=== PATIENT | female | born 1985 | race Hispanic/Latino ===

== ENCOUNTER 2019-09-08 12:44 | Outpatient (CLI) | payer OTHER ==
--- NOTE | 2019-09-08 13:38 | RAD ---
PA AND LATERAL CHEST: HISTORY: Unspecified bacterial pneumonia. 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 FINDINGS: The heart size is normal. The lungs are expanded without lobar consolidation, pneumothoraces or pleur al effusions. No acute osseous abnormalities are seen. IMPRESSION: No acute process. POS: [facility]
== END 2019-09-08 12:45 | disposition home or self-care (01) ==
LOC: BICRAD 12:44
PROVIDERS: ATTEND Family Medicine
DX: J15.9 Unspecified bacterial pneumonia (principal); R05 Cough; R68.83 Chills (without fever)
CPT/HCPCS: 71046

== ENCOUNTER 2019-11-05 19:56 | Inpatient (IN) | payer OTHER ==
[2019-11-05] MEDS ORDERED: DEXTROSE 5% IV SCH (20:30)
[2019-11-05] MEDS ORDERED: WATER IV SCH (20:30)
[2019-11-05] MEDS ORDERED: ACETYLCYSTEINE IV SCH (20:30)
[2019-11-05] MEDS ORDERED: Ondansetron PF 4 MG/2 ML Vial ONE ×2 (20:54→23:22)
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
[2019-11-06] MEDS ORDERED: DEXTROSE 5% IV SCH (01:30)
[2019-11-06] MEDS ORDERED: ACETYLCYSTEINE IV SCH (01:30)
[2019-11-06] MEDS ORDERED: WATER IV SCH (01:30)
[2019-11-06 06:13] LABS: INR-International Normal Ratio 1.5; PTT 29.5 SEC (22.9-36.1); Prothrombin Time 17.7 SEC (12.0-14.7)
--- NOTE | 2019-11-06 08:37 | PDOC.FM ---
- Subjective Subjective: Pt resting comfortably in bed. States she regrets OD. No current SI/HI. Phys Exam - Physical Examination Constitutional: NAD HEENT: moist MMs, sclera anicteric Neck: supple, full ROM Respiratory: no wheezing, clear to auscultation bilateral Cardiovascular: RRR, no significant murmur Gastrointestinal: soft, no distention Musculoskeletal: pulses present, edema present Neurological: normal sensation, moves all 4 limbs Psychiatric: normal affect, A&O x 3 Skin: normal turgor, cap refill <2 seconds Dx/Plan (1) Suicide attempt by acetaminophen overdose Code(s): T39.1X2A - POISONING BY 4-AMINOPHENOL DERIVATIVES, SELF-HARM, INIT Status: Acute (2) Tylenol overdose Code(s): T39.1X1A - POISONING BY 4-AMINOPHENOL DERIVATIVES, ACCIDENTAL, INIT Status: Acute - Plan Plan: Tylenol OD: A- Pt doing well, no complaints. She has no hx of depression but will require psych eval. P- Proceed with NAC 21h Protocol IV dosing- * Bag1- 150mg/kg in D5W 200ml IV over 1 hr * Bag2- 50mg/kg in D5W 500ml IV over 4hr * Bag3- 100mg/kg in D5W 1000ml IV over 16h -Will repeat CMP and Coags at end of protocol at 1630 -[facility] eval once medically cleared -consider SSRI -Zofran for n/v Low TSH -T3, T4 wnl. f/u outpt Hx of cervical cancer -MD aware DVT PPx: SCD GI Ppx: none Addendum - Attending - Attending Attestation Date/Time: 11/06/19 1010 I personally evaluated the patient and discussed the management with Dr. Jackson. I agree with the History, Examination, Assessment and Plan documented above with any addition or exceptions noted below. Patient here for acetominophen OD. Her levels were just within the treatment range based on [facility]. She will complete NAC this evening and repeat labs at that time. Likely consult [facility] after those labs result. She is awake and conversing normally. Regretful for her actions. Hopeful no major or fci liver damage based on her levels.
[2019-11-06 09:23] VITALS: BMI 19.5
[2019-11-06] MEDS: Ondansetron PF 4 MG/2 ML Vial IVP PRN ×2 (09:35→22:11)
[2019-11-06] MEDS ORDERED: FLU VACC QS2019-20(6MOS UP)/PF 60 MCG/0.5 ML SYRINGE IM ONE (10:00)
[2019-11-06] MEDS ORDERED: Sodium Chloride 0.9% 1,000 ML IV SCH (10:15)
[2019-11-06] MEDS ORDERED: Sodium Chloride 0.9% 500 ML IV SCH (13:45)
[2019-11-06 17:11] LABS: INR-International Normal Ratio 1.7; PTT 33.8 SEC (22.9-36.1)
[2019-11-06 17:30] LABS: ALT (SGPT) 1628 U/L (8-55); AST (SGOT) 2109 U/L (5-34); Albumin 3.8 g/dL (3.5-5.0); Alkaline Phosphatase 95 U/L (40-110); Bilirubin, Direct 0.9 mg/dL (0.1-0.3); Bilirubin, Total 2.1 mg/dL (0.2-1.2); Protein, Total 6.5 g/dL (6.0-8.3)
[2019-11-06] MEDS: Sodium Chloride 0.9% 1,000 ML IV SCH ×2 (17:52→22:31)
[2019-11-06] MEDS ORDERED: DEXTROSE 5% IVPB ONE (18:45)
[2019-11-06] MEDS ORDERED: WATER IVPB ONE (18:45)
[2019-11-06] MEDS ORDERED: ACETYLCYSTEINE IVPB ONE (18:45)
[2019-11-06 18:48] LABS: Acetaminophen Less than 6.0 mcg/mL (10.0-30.0)
--- NOTE | 2019-11-07 06:07 | PDOC.FM ---
- Subjective Subjective: She is complaining of nausea this morning. She says she has been sleeping well. - Objective MAR Reviewed: Yes Vital Signs & Weight: Vital Signs (12 hours) Temp Pulse Resp BP Pulse Ox 11/07/19 03:30 98.3 F 70 16 93/57 L 98 11/06/19 19:30 98.2 F 61 18 105/69 95 Weight Weight 53.127 kg I&O: 11/05/19 11/06/19 11/07/19 06:59 06:59 06:59 Intake Total 2117.5 Output Total 1200 Balance 917.5 Result Diagrams: 11/07/19 08:42 Phys Exam - Physical Examination Constitutional: NAD HEENT: moist MMs, oral pharynx no lesions Neck: supple, full ROM Respiratory: clear to auscultation bilateral Cardiovascular: RRR, no significant murmur Gastrointestinal: soft, non-tender, positive bowel sounds Musculoskeletal: no edema, pulses present Neurological: moves all 4 limbs Psychiatric: normal affect Skin: no rash Dx/Plan (1) Suicide attempt by acetaminophen overdose Code(s): T39.1X2A - POISONING BY 4-AMINOPHENOL DERIVATIVES, SELF-HARM, INIT Status: Acute (2) Tylenol overdose Code(s): T39.1X1A - POISONING BY 4-AMINOPHENOL DERIVATIVES, ACCIDENTAL, INIT Status: Acute (3) Tylenol poisoning Code(s): T39.1X1A - POISONING BY 4-AMINOPHENOL DERIVATIVES, ACCIDENTAL, INIT Status: Acute (4) Adenocarcinoma of cervix, stage 4 Code(s): C53.9 - MALIGNANT NEOPLASM OF CERVIX UTERI, UNSPECIFIED Status: Acute - Plan Plan: A- Pt doing well, no complaints. She has no hx of depression but will require psych eval. P- Proceed with NAC 21h Protocol IV dosing- * Bag1- 150mg/kg in D5W 200ml IV over 1 hr * Bag2- 50mg/kg in D5W 500ml IV over 4hr * Bag3- 100mg/kg in D5W 1000ml IV over 16h * Bag4- 100mg/kg in D5W 1000ml IV over 16h -Will repeat CMP and Coags at end of protocol at 0900 -[facility] eval once medically cleared -consider SSRI -Zofran for n/v not working, so will switch to phenegran Low TSH -T3, T4 wnl. f/u outpt Hx of cervical cancer -MD aware DVT PPx: SCD GI Ppx: none Addendum - Attending - Attending Attestation Date/Time: 11/07/19 0720 I personally evaluated the patient and discussed the management with Dr. Cuello. I agree with the History, Examination, Assessment and Plan documented above with any addition or exceptions noted below. Patient was hypotensive with bp 80's/40's. She was asymptomatic. Giving 1 liter bolus NS. Pt with persistent nausea not improved with zofran. Will adjust meds. Pt has been on n-acetylcystein overnight and will get an additional bag this morning for tylenol overdose. Will add PPI. Pt is also hypokalemic, will replace potassium.
[2019-11-07] MEDS: Sodium Chloride 0.9% 1,000 ML IV SCH ×4 (07:21→16:47)
[2019-11-07] MEDS: Ondansetron PF 4 MG/2 ML Vial IVP PRN ×2 (07:31→15:25)
[2019-11-07 09:04] LABS: INR-International Normal Ratio 1.7; Prothrombin Time 19.5 SEC (12.0-14.7)
[2019-11-07 09:05] LABS: PTT 32.4 SEC (22.9-36.1)
[2019-11-07 09:08] LABS: Albumin 3.7 g/dL (3.5-5.0)
[2019-11-07 09:10] LABS: Calcium 8.5 mg/dL (7.8-10.44); Chloride 106 mmol/L (98-107); Sodium 143 mmol/L (136-145)
[2019-11-07 09:11] LABS: Globulin 2.5 g/dL (2.4-3.5); Glucose 99 mg/dL (70-105); Protein, Total 6.2 g/dL (6.0-8.3)
[2019-11-07 09:12] LABS: Anion Gap 12 mmol/L (10-20); Carbon Dioxide 28 mmol/L (22-29); Potassium 2.9 mmol/L (3.5-5.1)
[2019-11-07 09:13] LABS: Bilirubin, Total 2.2 mg/dL (0.2-1.2)
[2019-11-07 09:14] LABS: Alkaline Phosphatase 88 U/L (40-110); Calc. Creatinine Clearance 101 mL/min (70-130); Estimated GFR-MDRD Greater than 90
[2019-11-07 09:15] LABS: BUN (Urea Nitrogen) Less than 4 mg/dL (7.0-18.7)
[2019-11-07 09:16] LABS: AST (SGOT) 824 U/L (5-34)
[2019-11-07 09:17] LABS: ALT (SGPT) 1391 U/L (8-55)
[2019-11-07] MEDS ORDERED: Potassium Chloride 20 MEQ TAB PO SCH ×2 (09:30)
[2019-11-07] MEDS: Promethazine HCl 12.5 MG in Sodium Chloride 0.9% 50 ML IVPB PRN ×2 (09:49→16:47)
[2019-11-07] MEDS ORDERED: DEXTROSE 5% IVPB SCH (10:44)
[2019-11-07] MEDS ORDERED: WATER IVPB SCH (10:44)
[2019-11-07] MEDS ORDERED: ACETYLCYSTEINE IVPB SCH (10:44)
[2019-11-08 01:01] LABS: ALT (SGPT) 935 U/L (8-55); AST (SGOT) 257 U/L (5-34); Albumin 3.5 g/dL (3.5-5.0); Alkaline Phosphatase 79 U/L (40-110); Anion Gap 9 mmol/L (10-20); BUN (Urea Nitrogen) Less than 4 mg/dL (7.0-18.7); Bilirubin, Total 1.7 mg/dL (0.2-1.2); Calc. Creatinine Clearance 94 mL/min (70-130); Calcium 8.3 mg/dL (7.8-10.44); Carbon Dioxide 28 mmol/L (22-29); Chloride 109 mmol/L (98-107); Estimated GFR-MDRD Greater than 90; Globulin 2.5 g/dL (2.4-3.5); Glucose 118 mg/dL (70-105); Sodium 143 mmol/L (136-145)
[2019-11-08 01:07] LABS: Potassium 2.9 mmol/L (3.5-5.1)
[2019-11-08 01:10] LABS: INR-International Normal Ratio 1.5; PTT 32.4 SEC (22.9-36.1); Prothrombin Time 17.9 SEC (12.0-14.7)
[2019-11-08 01:11] LABS: D-Dimer Test 0.59 *mcg/mL (0.27-0.43)
[2019-11-08] MEDS: Sodium Chloride 0.9% 1,000 ML IV SCH ×3 (01:26→20:56)
[2019-11-08] MEDS ORDERED: Potassium Chloride 20 MEQ TAB PO SCH ×2 (01:45→14:00)
[2019-11-08] MEDS: Ondansetron PF 4 MG/2 ML Vial IVP PRN ×2 (02:08→16:04)
--- NOTE | 2019-11-08 05:41 | PDOC.FM ---
- Subjective Subjective: She has nausea this morning, but she is not having any abdominal pain. She says she is sleeping well. - Objective MAR Reviewed: Yes Vital Signs & Weight: Vital Signs (12 hours) Temp Pulse Resp BP BP Pulse Ox 11/08/19 03:13 98.6 F 57 L 12 93/55 L 98 11/07/19 23:47 98.9 F 64 13 93/56 L 98 11/07/19 20:28 98.3 F 65 18 98/59 L 100 Weight Admit Weight 53.127 kg Weight 53.127 kg I&O: 11/06/19 11/07/19 11/08/19 06:59 06:59 06:59 Intake Total 2117.5 1440 Output Total 1200 700 Balance 917.5 740 Result Diagrams: 11/08/19 11:12 Phys Exam - Physical Examination Constitutional: NAD HEENT: moist MMs, oral pharynx no lesions Neck: supple, full ROM Respiratory: clear to auscultation bilateral Cardiovascular: RRR, no significant murmur Gastrointestinal: soft, non-tender, positive bowel sounds Musculoskeletal: no edema, pulses present Neurological: moves all 4 limbs Psychiatric: normal affect Skin: no rash, normal turgor Dx/Plan (1) Suicide attempt by acetaminophen overdose Code(s): T39.1X2A - POISONING BY 4-AMINOPHENOL DERIVATIVES, SELF-HARM, INIT Status: Acute (2) Tylenol overdose Code(s): T39.1X1A - POISONING BY 4-AMINOPHENOL DERIVATIVES, ACCIDENTAL, INIT Status: Acute (3) Tylenol poisoning Code(s): T39.1X1A - POISONING BY 4-AMINOPHENOL DERIVATIVES, ACCIDENTAL, INIT Status: Acute (4) Adenocarcinoma of cervix, stage 4 Code(s): C53.9 - MALIGNANT NEOPLASM OF CERVIX UTERI, UNSPECIFIED Status: Acute - Plan Plan: A- Pt doing well, no complaints. She has no hx of depression but will require psych eval. P- Proceed with NAC 21h Protocol IV dosing- * Bag1- 150mg/kg in D5W 200ml IV over 1 hr * Bag2- 50mg/kg in D5W 500ml IV over 4hr * Bag3- 100mg/kg in D5W 1000ml IV over 16h * Bag4- 100mg/kg in D5W 1000ml IV over 16h -LFTs lower, but still elevated, we will trend -[facility] eval once medically cleared -consider SSRI -Phenegran for n/v not working Low TSH -T3, T4 wnl. f/u outpt Hx of cervical cancer -MD aware DVT PPx: SCD GI Ppx: none Dispo: Tele, inpt. LOS >48H Will trend LFTs. Consider GI consult today or tomorrow. Addendum - Attending - Attending Attestation Date/Time: 11/08/19 3374 I personally evaluated the patient and discussed the management with Dr. Cuello. I agree with the History, Examination, Assessment and Plan documented above with any addition or exceptions noted below. Liver enzymes are downtrending. Pt is still nauseated but notes improvement. Abdominal pain is improved. Giving additional fluid bolus for hypotension however pt likely runs in the low 90-100's systolic at home per pt.
[2019-11-08] MEDS ORDERED: Sodium Chloride 0.9% 1,000 ML IV SCH ×2 (06:00→12:00)
[2019-11-08] MEDS: Promethazine HCl 12.5 MG in Sodium Chloride 0.9% 50 ML IVPB PRN ×2 (08:58→22:17)
[2019-11-08 11:40] LABS: Anion Gap 8 mmol/L (10-20); BUN (Urea Nitrogen) Less than 4 mg/dL (7.0-18.7); Calc. Creatinine Clearance 107 mL/min (70-130); Calcium 8.5 mg/dL (7.8-10.44); Carbon Dioxide 29 mmol/L (22-29); Chloride 110 mmol/L (98-107); Estimated GFR-MDRD Greater than 90; Glucose 102 mg/dL (70-105); Potassium 3.2 mmol/L (3.5-5.1); Sodium 144 mmol/L (136-145)
[2019-11-08 15:15] LABS: ALT (SGPT) 734 U/L (8-55); AST (SGOT) 139 U/L (5-34); Albumin 3.6 g/dL (3.5-5.0); Alkaline Phosphatase 74 U/L (40-110); Bilirubin, Direct 0.6 mg/dL (0.1-0.3); Bilirubin, Total 1.3 mg/dL (0.2-1.2)
--- NOTE | 2019-11-09 04:50 | PDOC.FM ---
- Subjective Subjective: Doing well this morning, still complains of nausea. - Objective MAR Reviewed: Yes Vital Signs & Weight: Vital Signs (12 hours) Temp Pulse Resp BP Pulse Ox 11/09/19 03:11 97.9 F 62 16 104/64 98 11/08/19 23:09 98.7 F 58 L 14 103/68 98 11/08/19 20:57 98.7 F 65 18 98/64 99 11/08/19 20:10 99 Weight Admit Weight 53.127 kg Weight 53.127 kg I&O: 11/07/19 11/08/19 11/09/19 06:59 06:59 06:59 Intake Total 2117.5 3880 2490 Output Total 1200 1300 2800 Balance 917.5 2580 -310 Result Diagrams: 11/09/19 06:20 Phys Exam - Physical Examination Constitutional: NAD HEENT: PERRLA, moist MMs Neck: supple, full ROM Respiratory: no wheezing, no rales, no rhonchi, clear to auscultation bilateral Cardiovascular: RRR, no significant murmur, no rub Gastrointestinal: soft, non-tender Musculoskeletal: no edema Neurological: non-focal, moves all 4 limbs Psychiatric: normal affect, A&O x 3 Dx/Plan (1) Suicide attempt by acetaminophen overdose Code(s): T39.1X2A - POISONING BY 4-AMINOPHENOL DERIVATIVES, SELF-HARM, INIT Status: Acute (2) Tylenol overdose Code(s): T39.1X1A - POISONING BY 4-AMINOPHENOL DERIVATIVES, ACCIDENTAL, INIT Status: Acute (3) Tylenol poisoning Code(s): T39.1X1A - POISONING BY 4-AMINOPHENOL DERIVATIVES, ACCIDENTAL, INIT Status: Acute - Plan Plan: Overdose, tylenol -Completed NAC 21h Protocol IV dosing -LFTs lower, but still elevated, we will trend -[facility] eval once medically cleared -Zofran and Phenergan for n/v Low TSH -T3, T4 wnl. f/u outpt Hx of cervical cancer -MD aware DVT PPx: SCD GI Ppx: none Dispo: Tele, inpt. LOS >48H Will trend LFTs. Consider GI consult today or tomorrow. Addendum - Attending - Attending Attestation Date/Time: 11/09/19 8104 I personally evaluated the patient and discussed the management with the team. I agree with the History, Examination, Assessment and Plan documented above with any addition or exceptions noted below. Patient with intermittent nausea but improving. No LESLI/RUQ pain. No f/c. No cp/sob. Exam is unremarkable. Poison control said to d/c NAC in light of serially downtrending LFT's. Will xfer to the floor. Possible [facility] consultation tomorrow.
[2019-11-09 04:52] LABS: INR-International Normal Ratio 1.2; PTT 34.1 SEC (22.9-36.1); Prothrombin Time 15.5 SEC (12.0-14.7)
[2019-11-09] MEDS: Sodium Chloride 0.9% 1,000 ML IV SCH ×3 (05:13→19:57)
[2019-11-09 07:01] LABS: ALT (SGPT) 533 U/L (8-55); AST (SGOT) 74 U/L (5-34); Albumin 3.4 g/dL (3.5-5.0); Alkaline Phosphatase 74 U/L (40-110); Anion Gap 7 mmol/L (10-20); BUN (Urea Nitrogen) Less than 4 mg/dL (7.0-18.7); Bilirubin, Total 0.8 mg/dL (0.2-1.2); Calc. Creatinine Clearance 109 mL/min (70-130); Calcium 8.5 mg/dL (7.8-10.44); Carbon Dioxide 28 mmol/L (22-29); Chloride 110 mmol/L (98-107); Estimated GFR-MDRD Greater than 90; Globulin 2.3 g/dL (2.4-3.5); Glucose 83 mg/dL (70-105); Potassium 3.3 mmol/L (3.5-5.1); Protein, Total 5.7 g/dL (6.0-8.3); Sodium 142 mmol/L (136-145)
[2019-11-09] MEDS: Ondansetron PF 4 MG/2 ML Vial IVP PRN ×2 (09:03→17:07)
[2019-11-09] MEDS ORDERED: Potassium Chloride 20 MEQ TAB PO SCH (12:00)
[2019-11-09] MEDS ORDERED: Magnesium 2 GM/50 ML 2 GM in Premix Bag 1 BAG IVPB SCH (12:00)
[2019-11-09 13:49] LABS: Cardiolipin IgG Ab 4.1 GPL-U/mL (<10 Negative); Cardiolipin IgM Ab 1.9 MPL-U/mL (<10 Negative); EliA APS New Method **** NEW METHOD ****
[2019-11-09] MEDS: Promethazine HCl 12.5 MG in Sodium Chloride 0.9% 50 ML IVPB PRN (20:12)
[2019-11-10] MEDS: Sodium Chloride 0.9% 1,000 ML IV SCH ×2 (00:19→08:20)
--- NOTE | 2019-11-10 05:56 | PDOC.FM ---
- Subjective Subjective: Ms. Pearson is doing well this morning. She states he nausea has improved. - Objective MAR Reviewed: Yes Vital Signs & Weight: Vital Signs (12 hours) Temp Pulse Resp BP BP Pulse Ox 11/10/19 04:15 98 F 54 L 16 102/66 98 11/09/19 23:15 97.9 F 53 L 18 102/67 99 11/09/19 19:05 98.9 F 68 13 98/65 98 Weight Admit Weight 53.127 kg Weight 53.127 kg I&O: 11/08/19 11/09/19 11/10/19 06:59 06:59 06:59 Intake Total 3880 2490 3346 Output Total 1300 2800 1700 Balance 2580 -310 1646 Result Diagrams: 11/10/19 05:40 Phys Exam - Physical Examination Constitutional: NAD HEENT: PERRLA, moist MMs Neck: no nodes, supple, full ROM Respiratory: no wheezing, no rales, no rhonchi, clear to auscultation bilateral Cardiovascular: RRR, no significant murmur, no rub Gastrointestinal: soft, non-tender Musculoskeletal: no edema, pulses present Neurological: non-focal, normal sensation Psychiatric: normal affect, A&O x 3 Skin: no rash, normal turgor Dx/Plan (1) Suicide attempt by acetaminophen overdose Code(s): T39.1X2A - POISONING BY 4-AMINOPHENOL DERIVATIVES, SELF-HARM, INIT Status: Acute (2) Tylenol overdose Code(s): T39.1X1A - POISONING BY 4-AMINOPHENOL DERIVATIVES, ACCIDENTAL, INIT Status: Acute (3) Tylenol poisoning Code(s): T39.1X1A - POISONING BY 4-AMINOPHENOL DERIVATIVES, ACCIDENTAL, INIT Status: Acute - Plan Plan: Overdose, tylenol -Completed NAC Protocol IV -LFTs lower, but still elevated, we will trend -I will contact [facility] today to verify what is considered medically stable as far as LFTs go. -Zofran and Phenergan for n/v Low TSH -T3, T4 wnl. f/u outpt Hx of cervical cancer -MD aware DVT PPx: SCD GI Ppx: none Code: Full Dispo: Stable, inpatient. Will consult [facility] as soon as LFTs are significantly decreased. Addendum - Attending - Attending Attestation Date/Time: 11/10/19 3464 I personally evaluated the patient and discussed the management with the team. I agree with the History, Examination, Assessment and Plan documented above with any addition or exceptions noted below. Encouraging results from LFT trend. Will clear medically, just needs twice a week or weekly LFTs to trend.
[2019-11-10 06:15] LABS: ALT (SGPT) 406 U/L (8-55); AST (SGOT) 58 U/L (5-34); Albumin 3.5 g/dL (3.5-5.0); Alkaline Phosphatase 76 U/L (40-110); Anion Gap 10 mmol/L (10-20); BUN (Urea Nitrogen) 4 mg/dL (7.0-18.7); Bilirubin, Total 0.8 mg/dL (0.2-1.2); Calc. Creatinine Clearance 110 mL/min (70-130); Calcium 8.7 mg/dL (7.8-10.44); Carbon Dioxide 27 mmol/L (22-29); Chloride 108 mmol/L (98-107); Estimated GFR-MDRD Greater than 90; Globulin 2.4 g/dL (2.4-3.5); Glucose 72 mg/dL (70-105); Magnesium 1.9 mg/dL (1.6-2.6); Potassium 3.8 mmol/L (3.5-5.1); Protein, Total 5.9 g/dL (6.0-8.3); Sodium 141 mmol/L (136-145)
[2019-11-10] MEDS: Ondansetron PF 4 MG/2 ML Vial IVP PRN (08:26)
[2019-11-10] MEDS ORDERED: Promethazine 25 MG TAB PO PRN (11:10)
[2019-11-10] MEDS ORDERED: Ondansetron ODT 4 MG TAB PO PRN (11:10)
[2019-11-11 05:51] LABS: ALT (SGPT) 333 U/L (8-55); AST (SGOT) 45 U/L (5-34); Albumin 3.9 g/dL (3.5-5.0); Alkaline Phosphatase 101 U/L (40-110); Anion Gap 10 mmol/L (10-20); BUN (Urea Nitrogen) 10 mg/dL (7.0-18.7); Bilirubin, Total 0.6 mg/dL (0.2-1.2); Calc. Creatinine Clearance 87 mL/min (70-130); Carbon Dioxide 30 mmol/L (22-29); Chloride 105 mmol/L (98-107); Estimated GFR-MDRD 85; Globulin 2.8 g/dL (2.4-3.5); Glucose 91 mg/dL (70-105); Potassium 3.4 mmol/L (3.5-5.1); Protein, Total 6.7 g/dL (6.0-8.3); Sodium 142 mmol/L (136-145)
--- NOTE | 2019-11-11 08:56 | PDOC.FM ---
- Subjective Subjective: Doing well this morning, nausea has resolved. She is eager to be discharged and understands the need for inpatient psychiatric evaluation and treatment, however she is discontent with it. - Objective MAR Reviewed: Yes Vital Signs & Weight: Vital Signs (12 hours) Temp Pulse Resp BP BP Pulse Ox 11/11/19 07:13 98.4 F 68 16 105/65 98 11/11/19 04:00 97.9 F 60 16 101/59 L 97 11/10/19 23:51 97.9 F 64 16 101/65 97 Weight Admit Weight 53.127 kg Weight 53.127 kg I&O: 11/10/19 11/11/19 11/12/19 06:59 06:59 06:59 Intake Total 3346 1120 450 Output Total 2100 Balance 1246 1120 450 Result Diagrams: 11/11/19 04:59 Phys Exam - Physical Examination Constitutional: NAD HEENT: PERRLA, moist MMs Neck: supple, full ROM Respiratory: no wheezing, no rales, no rhonchi, clear to auscultation bilateral Cardiovascular: RRR, no significant murmur, no rub Gastrointestinal: soft, non-tender Musculoskeletal: no edema, pulses present Neurological: non-focal, normal sensation Psychiatric: normal affect, A&O x 3 Skin: no rash, normal turgor Dx/Plan (1) Suicide attempt by acetaminophen overdose Code(s): T39.1X2A - POISONING BY 4-AMINOPHENOL DERIVATIVES, SELF-HARM, INIT Status: Acute (2) Tylenol overdose Code(s): T39.1X1A - POISONING BY 4-AMINOPHENOL DERIVATIVES, ACCIDENTAL, INIT Status: Acute (3) Tylenol poisoning Code(s): T39.1X1A - POISONING BY 4-AMINOPHENOL DERIVATIVES, ACCIDENTAL, INIT Status: Acute - Plan Plan: Overdose, tylenol - [facility] saw patient yesterday and recommended inpatient psychiatric hospitalization. We are in agreement with this assessment and working toward discharging the patient. Patient is medically stable and clear for d/c as soon as [place] [facility] is available. Low TSH -T3, T4 wnl. f/u outpt Hx of cervical cancer -MD aware DVT PPx: SCD GI Ppx: none Code: Full Dispo: Stable, inpatient. Will consult [facility] as soon as LFTs are significantly decreased. Addendum - Attending - Attending Attestation Date/Time: 11/11/19 1300 I personally evaluated the patient and discussed the management with Dr. Keane. I agree with the History, Examination, Assessment and Plan documented above with any addition or exceptions noted below.
[2019-11-11 12:37] VITALS: BP 105/68; TEMP 97.8
== END 2019-11-11 13:35 | disposition short-term general hospital (02) | DRG 918 ==
LOC: ERS 19:56 → ERHOLD 20:35 → 2NO 11-06 09:05 → SURG B 11-09 19:32
PROVIDERS: ADMIT Emergency Medicine; ATTEND Emergency Medicine
DX: T39.1X2A Poisoning by 4-Aminophenol derivatives, intentional self-harm, initial encounter (principal); C53.9 Malignant neoplasm of cervix uteri, unspecified; F32.9 Major depressive disorder, single episode, unspecified; Z98.51 Tubal ligation status; E87.6 Hypokalemia; I95.9 Hypotension, unspecified
CPT/HCPCS: 36415; 80053; 80076; 80307; 81240; 81241; 83090; 83735; 84439; 84481; 85240; 85300; 85303; 85305; 85307; 85379; 85598; 85610; 85730; 86147; J0132; J2405; J2550; J3475; J7070

== ENCOUNTER 2020-07-25 07:52 | Outpatient (CLI) | payer OTHER ==
--- NOTE | 2020-07-25 09:28 | MRI ---
Exam: MRI cervical spine without contrast HISTORY: Tingling and numbness in left lower arm and right forearm x2-3 months.. COMPARISON: None FINDINGS: Appropriate T1 marrow signal intensity of the cervical vertebra. Cervical spine vertebral body heigh t is maintained. No fracture. No significant STIR hyperintensity suggest ligamentous injury or vertebral body edema Visualized brain parenchyma, cervicomedullary junction, cervical cord and the upper thoracic cord hav e a normal size and signal intensity C2-C3: No significant posterior disc abnormality. No significant central canal stenosis or significan t neural foraminal narrowing C3-C4: No significant posterior disc abnormalities. No significant central canal stenosis or signific ant neural foraminal narrowing C4-C5: No significant posterior disc abnormality. No significant central canal stenosis or significan t neural foraminal narrowing C5-C6: No significant posterior disc abnormality. No significant central canal stenosis or significan t neural foraminal narrowing C6-C7: No significant posterior disc abnormality. No significant central canal stenosis or significan t neural foraminal narrowing C7-T1: No significant posterior disc abnormality. No significant central canal stenosis or significan t neural foraminal narrowing IMPRESSION: No significant central canal stenosis or significant neural foraminal narrowing, throughout the cerv ical spine
--- NOTE | 2020-07-25 09:52 | MRI ---
Exam: Brain MRI with and without contrast HISTORY: Hypoesthesia. Tingling and numbness in the left lower arm and right upper extremity. COMPARISON: 10/28/2016 FINDINGS: Gradient echo sequence: No hemorrhage Calvarium: Appropriate T1 marrow signal intensity Midline brain parenchyma: Unremarkable Cerebrum:No parenchymal mass, mass effect or midline shift. Brain volume is age-appropriate. Cortical ogden-white matter differentiation is preserved. No significant T2 or FLAIR white matter hyperintensity. Ventricles: No evidence of hydrocephalus. Sinuses and mastoid air cells: Adequate aeration Diffusion: Central arterial flow is maintained. Absent restricted diffusion. Postcontrast images: No pathologic enhancement of the brain parenchyma. IMPRESSION: No acute intracranial process. No significant interval change.
[2020-07-25] MEDS ORDERED: Magnevist 469MG/ML 20 ML VIAL ONE (11:23)
== END 2020-07-25 07:53 | disposition home or self-care (01) ==
LOC: BICMRI 07:52
PROVIDERS: ATTEND Psychiatry & Neurology Neurology
DX: R20.1 Hypoesthesia of skin (principal)
CPT/HCPCS: 70553; 72141; A9579

== ENCOUNTER 2023-07-19 08:04 | Outpatient (CLI) | payer BC | END 2023-07-19 08:05 | disposition home or self-care (01) | LOC: BICRAD 08:04 | PROVIDERS: ATTEND Student in an Organized Health Care Education/Training Program | DX: M25.541 Pain in joints of right hand (principal) ==

== ENCOUNTER 2024-10-02 22:00 | Emergency (ER) | payer BC ==
[2024-10-02 22:28] LABS: #Basophils Less than 0.03 10x3/uL (0.0-0.2); %Basophils 0.2 % (0.0-1.0); %Eosinophils 0.3 % (0.0-10.0); %Lymphocytes 19.3 % (21.0-51.0); %Monocytes 5.5 % (0.0-10.0); %Neutrophils 74.4 % (42.0-75.0); Hematocrit 38.9 % (36.0-47.0); Hemoglobin 12.9 g/dL (12.0-16.0); Mean Corpuscular HGB CONC 33.2 g/dL (32.0-36.0); Mean Corpuscular Hemoglobin 29.5 pg (27.0-31.0); Mean Corpuscular Volume 88.8 fL (78.0-98.0); Platelet Count 280 10x3/uL (130-400); RBC Distribution Width 12.7 % (11.5-14.5); Red Blood Cell (RBC) Count 4.38 mill/uL (4.20-5.40)
[2024-10-02 22:31] LABS: Bacteria/HPF None Seen HPF (None Seen); Bilirubin Negative (Negative); Blood, Urine 2+ (Negative); CAUTI Indications for Culture Dysuria,urgency,freq; Clarity Turbid (Clear); Glucose, Urine (Dipstick) Normal (Negative); Ketone, Urine Negative (Negative); Leukocyte 500 Leu/uL (Negative); Nitrite Negative (Negative); Pregnancy Test - Urine (BHCG) Negative (Negative); Pregu Control Background? CLEAR/WHITE (CLR/WHITE); Pregu Control Bar Appear? YES (CONTROL BAR); Protein, Urine (Dipstick) 300 mg/dL (Neg-Trace); Squamous Epithelial None Seen HPF (0-3); Urobilinogen Normal mg/dL (Less than 2); WBC/HPF Greater than 50 HPF (0-3); pH, Urine 6.5 (5.0-9.0)
[2024-10-02 22:33] LABS: Urine Culture Reflex Yes Yes
[2024-10-02 22:52] LABS: ALT (SGPT) 27 U/L (8-55); AST (SGOT) 31 U/L (5-34); Albumin 3.9 g/dL (3.5-5.0); Alkaline Phosphatase 114 U/L (40-110); Anion Gap 15 mmol/L (10-20); BUN (Urea Nitrogen) 13 mg/dL (7.0-18.7); Calc. Creatinine Clearance 0 mL/min (70-130); Calcium 9.5 mg/dL (7.8-10.44); Carbon Dioxide 23 mmol/L (22-29); Chloride 108 mmol/L (98-107); Estimated GFR 95; Glucose 136 mg/dL (70-105); Lipase 17 U/L (8-78); Potassium 4.6 mmol/L (3.5-5.1); Protein, Total 7.9 g/dL (6.0-8.3); Sodium 141 mmol/L (136-145)
[2024-10-02] MEDS ORDERED: Ketorolac Tromethamine 30 MG (1 mL) VIAL ONE (23:16)
[2024-10-02] MEDS ORDERED: Morphine 4 MG/ML VIAL ONE (23:17)
[2024-10-02] MEDS ORDERED: Ondansetron PF 4 MG/2 ML Vial ONE (23:17)
[2024-10-03] MEDS ORDERED: cefTRIAXone (ROCEPHIN) 1 GM VIAL ONE (00:07)
[2024-10-03] MEDS ORDERED: Sodium Chloride 0.9% 100 ML ONE (00:08)
== END 2024-10-03 00:05 | disposition home or self-care (01) ==
LOC: ERS 22:00
DX: N10 Acute pyelonephritis (principal); Z87.891 Personal history of nicotine dependence
CPT/HCPCS: 36415; 74176; 80053; 81001; 81025; 83690; 85025; 87077; 87086; 96365; 96375; J0696; J1885; J2272; J2405